=== PATIENT | female | born 1945 | race Caucasian/White ===

== ENCOUNTER 2023-06-10 07:31 | Day surgery (SDC) | payer MEDICARE, OTHER ==
[~2023-06-10] VITALS: Ht 170.2 cm; Wt 80.7 kg
[~2023-06-10 07:31] MED LIST: ALEN70TA87 PO; ATOR40TA75 PO; BSS IRRIG/VANCO(10MG)/TOBRA(5MG)/EPINEPH(1:1000-0.5CC)500ML BAG-ORONLY IR ONE; CEFUROXIME 1MG/0.1ML INTRACAMERAL INJ As Ordered ONE; CYCLOPENTOLATE 1% OPHTH SOLN 2ML BTL OD SCH; DILT180C28 PO; DONE10TA90 PO; ERGO500029 PO; FURO40TA2 PO; HYDR-3713 PO; LEXA5TAB13 PO; LIDOCAINE 1% SDV 5ML VIAL As Ordered ONE; LIDOCAINE 3.5 % 1ML OPHTH TOPICAL GEL OU ONE; MEMA10TA19 PO; METO75TA PO; MIDAZOLAM INJ 2MG/2ML VIAL As Ordered ONE; MM S100C PO; OFLOXACIN 0.3 % (OCUFLOX) OPTH SOL 5ML OD ONE; PHENYLEPHRINE 10% OPHTH SOL 5ML OD PRN; PHENYLEPHRINE 2.5% OPHTH SOL 2ML OD SCH; QUET1TAB17 PO; RISP0.253 PO; TROPICAMIDE 1% OPHTH SOLN 15ML OD SCH; WARF-58 PO; fentaNYL 100 MCG/2 ML INJECTION As Ordered ONE
[2023-06-10] MEDS ORDERED: ONDANSETRON 4MG 2ML VIAL As Ordered ONE (09:47)
[2023-06-10] MEDS ORDERED: propofoL 200 MG/20 ML VIAL As Ordered ONE (09:47)
[2023-06-10 09:54] VITALS: BP 106/70; TEMP 96.1; O2SAT 93
== END 2023-06-10 10:20 | disposition home or self-care (01) ==
LOC: M SDC 07:31
PROVIDERS: ATTEND Ophthalmology
DX: H25.11 Age-related nuclear cataract, right eye (principal); I10 Essential (primary) hypertension; I48.91 Unspecified atrial fibrillation; E78.00 Pure hypercholesterolemia, unspecified; F03.90 Unspecified dementia, unspecified severity, without behavioral disturbance, psychotic disturbance, mood disturbance, and anxiety; Z79.899 Other long term (current) drug therapy; Z79.01 Long term (current) use of anticoagulants; Z90.49 Acquired absence of other specified parts of digestive tract
CPT/HCPCS: 66984; J0697; J2250; J2405; J3010; V2632

== ENCOUNTER 2023-08-05 09:32 | Day surgery (SDC) | payer MEDICARE, OTHER ==
[~2023-08-05] VITALS: Ht 170.2 cm; Wt 82.7 kg
[~2023-08-05 09:32] MED LIST changes: +BSS IRRIG/VANCO(10MG)/TOBRA(5MG)/EPINEPH(1:1000-0.5CC)500ML BAG-ORONLY As Ordered ONE; -BSS IRRIG/VANCO(10MG)/TOBRA(5MG)/EPINEPH(1:1000-0.5CC)500ML BAG-ORONLY IR ONE; -CEFUROXIME 1MG/0.1ML INTRACAMERAL INJ As Ordered ONE; -CYCLOPENTOLATE 1% OPHTH SOLN 2ML BTL OD SCH; -LIDOCAINE 1% SDV 5ML VIAL As Ordered ONE; -LIDOCAINE 3.5 % 1ML OPHTH TOPICAL GEL OU ONE; -OFLOXACIN 0.3 % (OCUFLOX) OPTH SOL 5ML OD ONE; -PHENYLEPHRINE 10% OPHTH SOL 5ML OD PRN; +PHENYLEPHRINE 10% OPHTH SOL 5ML OS PRN; -PHENYLEPHRINE 2.5% OPHTH SOL 2ML OD SCH; -TROPICAMIDE 1% OPHTH SOLN 15ML OD SCH
[2023-08-05] MEDS: ATROPINE SULFATE 1% OPHTH SOLN 2ML BTL OS SCH (09:54)
[2023-08-05] MEDS: OFLOXACIN 0.3 % (OCUFLOX) OPTH SOL 5ML OS ONE (09:55)
[2023-08-05] MEDS: TROPICAMIDE 1% OPHTH SOLN 15ML OS SCH (09:55)
[2023-08-05] MEDS: PHENYLEPHRINE 2.5% OPHTH SOL 2ML OS SCH (09:55)
[2023-08-05] MEDS: LIDOCAINE 3.5 % 1ML OPHTH TOPICAL GEL OU ONE (09:55)
[2023-08-05] MEDS: CEFUROXIME 1MG/0.1ML INTRACAMERAL INJ As Ordered ONE (11:15)
[2023-08-05] MEDS: LIDOCAINE 1% SDV 5ML VIAL As Ordered ONE (11:15)
[2023-08-05 11:26] VITALS: BP 119/71; TEMP 96.7; O2SAT 97
== END 2023-08-05 11:40 | disposition home or self-care (01) ==
LOC: M SDC 09:32
PROVIDERS: ATTEND Ophthalmology
DX: H25.12 Age-related nuclear cataract, left eye (principal); I48.91 Unspecified atrial fibrillation; Z79.899 Other long term (current) drug therapy; Z79.01 Long term (current) use of anticoagulants
CPT/HCPCS: 66984; J0697; J2250; J3010; V2632